=== PATIENT | female | born 1935 | race Caucasian/White ===

== ENCOUNTER 2017-02-12 13:57 | Outpatient (CLI) | payer MEDICARE ==
[2017-02-12 14:36] LABS: ALT (SGPT) 21 U/L (0-55); AST (SGOT) 26 U/L (5-34); Albumin 4.4 g/dL (3.4-4.8); Alkaline Phosphatase 97 U/L (40-150); Bilirubin, Direct 0.2 mg/dL (0.1-0.3); Bilirubin, Total 0.5 mg/dL (0.2-1.2); Cardiac Risk 2.2 (Less than 4.5); Cholesterol 193 mg/dL (< 200 Desired); HDL Cholesterol 86 mg/dL (>60 Neg Risk); LDL Cholesterol, Calculated 90 mg/dL; Triglycerides 85 mg/dL (Less than 150)
== END 2017-02-12 13:58 | disposition home or self-care (01) ==
LOC: HPCALD 13:57
PROVIDERS: ATTEND Family Medicine
DX: E78.00 Pure hypercholesterolemia, unspecified (principal)
CPT/HCPCS: 36415; 80061; 80076

== ENCOUNTER 2017-07-14 13:29 | Outpatient (CLI) | payer MEDICARE, MEDICAID ==
[2017-07-14 13:50] LABS: Bilirubin Negative (Negative); Blood, Urine Negative (Negative); Clarity Clear (Clear); Glucose, Urine (Dipstick) Negative (Negative); Leukocyte Negative (Negative); Nitrite Negative (Negative); Protein, Urine (Dipstick) Negative (Neg-Trace); Urobilinogen 0.2 mg/dL (0.2-1.0)
[2017-07-14 13:53] LABS: #Basophils 0.1 thou/uL (0.0-0.2); #Eosinphils 0.1 thou/uL (0.0-0.7); #Lymphocytes 2.2 thou/uL (1.20-3.40); #Monocytes 0.9 thou/uL (0.11-0.59); #Neutrophils 4.3 thou/uL (1.40-6.50); %Basophils 0.9 % (0.0-1.0); %Eosinophils 1.8 % (0.0-10.0); %Lymphocytes 28.5 % (21.0-51.0); %Monocytes 12.2 % (0.0-10.0); %Neutrophils 56.6 % (42.0-75.0); Hemoglobin 14.2 g/dL (12.0-16.0); Mean Corpuscular HGB CONC 32.5 g/dL (32.0-36.0); Mean Corpuscular Hemoglobin 30.4 pg (27.0-31.0); Mean Corpuscular Volume 93.5 fl (81.0-99.0); Mean Platelet Volume 6.1 fL (7.4-10.4); Platelet Count 219 thou/uL (130-400); RBC Distribution Width 11.4 % (11.5-14.5); Red Blood Cell (RBC) Count 4.67 mill/uL (4.20-5.40); White Blood Cell (WBC) Count 7.6 thou/uL (4.8-10.8)
[2017-07-14 13:58] LABS: Bacteria/HPF Rare-Few HPF (None Seen); Crystals/HPF RARE AMORPH PHOS HPF (Negative); RBC/HPF None Seen HPF (0-3); Squamous Epithelial 0-3 HPF (0-3); WBC/HPF 0-3 HPF (0-3)
[2017-07-14 14:17] LABS: ALT (SGPT) 22 U/L (8-55); AST (SGOT) 22 U/L (5-34); Albumin 4.4 g/dL (3.4-4.8); Alkaline Phosphatase 111 U/L (40-150); Anion Gap 15 mmol/L (10-20); BUN (Urea Nitrogen) 16 mg/dL (9.8-20.1); Bilirubin, Total 0.5 mg/dL (0.2-1.2); Calc. Creatinine Clearance 0 mL/min (70-130); Calcium 9.6 mg/dL (7.8-10.44); Carbon Dioxide 26 mmol/L (23-31); Chloride 100 mmol/L (98-107); Estimated GFR-MDRD 74; Globulin 2.7 g/dL (2.4-3.5); Glucose 88 mg/dL (83-110); Potassium 4.4 mmol/L (3.5-5.1); Protein, Total 7.1 g/dL (6.0-8.3); Sodium 137 mmol/L (136-145)
[2017-07-14 18:06] LABS: Syphilis Antibody Non-Reactive (NonReactive); Syphilis Antibody Index 0.05 S/CO (<1.00 Non-Reactive)
== END 2017-07-14 13:30 | disposition home or self-care (01) ==
LOC: HPCALD 13:29
PROVIDERS: ATTEND Family Medicine
DX: G31.84 Mild cognitive impairment of uncertain or unknown etiology (principal)
CPT/HCPCS: 80053; 81001; 82607; 84443; 85025; 86780

== ENCOUNTER → 2019-10-24 | Day surgery (SDC) | payer MEDICARE, MEDICAID ==
[2019-10-24 12:39] LABS: Bilirubin Negative (Negative); Blood, Urine Negative (Negative); Clarity Cloudy (Clear); Glucose, Urine (Dipstick) Negative (Negative); Leukocyte Trace (Negative); Nitrite Negative (Negative); Protein, Urine (Dipstick) Negative (Neg-Trace); Urobilinogen 0.2 mg/dL (Less than 2)
[2019-10-24 12:49] LABS: Bacteria/HPF Rare-Few HPF (None Seen); RBC/HPF None Seen HPF (0-3); Squamous Epithelial 0-3 HPF (0-3); WBC/HPF 0-3 HPF (0-3)
== END ==
LOC: BUR/OP 11:01
PROVIDERS: ATTEND Family Medicine
DX: R33.9 Retention of urine, unspecified (principal)
CPT/HCPCS: 51798; 81001; 87086

== ENCOUNTER 2019-11-22 12:36 | Inpatient (IN) | payer MEDICARE, MEDICAID ==
[2019-11-22] MEDS: Acetaminophen/Codeine 30-300mg Tablet PO PRN ×2 (19:38→23:40)
[2019-11-22] MEDS: Benztropine 1 MG TAB PO SCH (20:04)
[2019-11-22] MEDS: Atorvastatin Calcium 10 MG TAB PO SCH (20:04)
[2019-11-22] MEDS: tiZANidine HCl 4 MG TAB PO PRN (23:41)
[2019-11-23] MEDS: Acetaminophen/Codeine 30-300mg Tablet PO PRN ×4 (04:51→21:04)
[2019-11-23] MEDS: Amlodipine 5 MG TAB PO SCH (08:39)
[2019-11-23] MEDS: Vit A,C & E/Lutein/Minerals Tablet PO SCH ×2 (08:39→21:03)
[2019-11-23] MEDS: Benztropine 1 MG TAB PO SCH ×2 (08:39→21:03)
[2019-11-23] MEDS ORDERED: Polyethylene Glycol 3350 17 GM Packet PO PRN (10:04)
[2019-11-23] MEDS: Docusate 100 MG CAP PO SCH (21:03)
[2019-11-23] MEDS: Atorvastatin Calcium 10 MG TAB PO SCH (21:03)
[2019-11-24] MEDS: Acetaminophen/Codeine 30-300mg Tablet PO PRN ×4 (02:29→23:10)
[2019-11-24] MEDS: Vit A,C & E/Lutein/Minerals Tablet PO SCH ×2 (08:38→19:57)
[2019-11-24] MEDS: Benztropine 1 MG TAB PO SCH ×2 (08:38→19:57)
[2019-11-24] MEDS: Docusate 100 MG CAP PO SCH ×2 (08:39→19:57)
[2019-11-24] MEDS: Amlodipine 5 MG TAB PO SCH (08:39)
[2019-11-24] MEDS: Milk Of Magnesia 30 ML UDCUP PO PRN (19:46)
[2019-11-24] MEDS: Atorvastatin Calcium 10 MG TAB PO SCH (19:57)
[2019-11-25] MEDS: Acetaminophen/Codeine 30-300mg Tablet PO PRN (03:24)
[2019-11-25] MEDS: Benztropine 1 MG TAB PO SCH ×2 (08:56→21:11)
[2019-11-25] MEDS: Vit A,C & E/Lutein/Minerals Tablet PO SCH ×2 (08:56→21:11)
[2019-11-25] MEDS: Docusate 100 MG CAP PO SCH ×2 (08:57→21:11)
[2019-11-25] MEDS: Amlodipine 5 MG TAB PO SCH (08:57)
[2019-11-25] MEDS ORDERED: Triamcinolone 40 MG/ML VIAL ONE (12:28)
[2019-11-25] MEDS: Polyethylene Glycol 3350 17 GM Packet PO PRN (12:36)
[2019-11-25] MEDS: HYDROcodone/Acetaminophen 5/325 mg Tablet PO PRN ×3 (13:38→23:47)
[2019-11-25] MEDS: Atorvastatin Calcium 10 MG TAB PO SCH (21:11)
[2019-11-26] MEDS: HYDROcodone/Acetaminophen 5/325 mg Tablet PO PRN ×4 (04:29→21:21)
[2019-11-26] MEDS: Vit A,C & E/Lutein/Minerals Tablet PO SCH ×2 (08:48→21:21)
[2019-11-26] MEDS: Amlodipine 5 MG TAB PO SCH (08:48)
[2019-11-26] MEDS: Docusate 100 MG CAP PO SCH ×2 (08:48→21:21)
[2019-11-26] MEDS: Benztropine 1 MG TAB PO SCH ×2 (08:48→21:21)
--- NOTE | 2019-11-26 16:38 | HP ---
CHIEF COMPLAINT: Need for skilled rehabilitation. HISTORY OF THE PRESENT ILLNESS: Ms. Brown is an 84-year-old female with a past medical history of generalized anxiety disorder, on Prolixin injection therapy for many years, which has kept her condition under control, who has been suffering from chronic lumbar radiculopathy for several months. She was admitted to [facility] on November 16, 2019, by Demetrio Cleveland MD, who performed L2-L3 and L4-L5 laminectomies, partial facetectomies, and foraminotomies. In addition , he performed left L3-L4 hemilaminotomy and foraminotomy for decompression of the nerve root, right L3-L4 synovial cyst resection, right L3-L4 transfacet lateral diskectomy for decompression of the exiting left L3 nerve root, L3-L4 in-situ fusion posterolaterally with local bone autograft obtained from the same incision and allograft to treat spondylolisthesis, and use of operative microscope for microdissection for a diagnosis of multilevel lumbar stenosis, lumbar synovial cyst, lumbar spondylolisthesis, and far-lateral disk extrusion. Complications after the procedure included an elevated heart rate and hypertension. She has complained of some right buttock and posterior thigh pain, but overall it was improving at the time of her transfer. She continued to have some give-way weakness into the right leg when walking with therapists, but overall felt improving since the surgery. She had good strength in the bilateral lower extremities with intact sensation to light touch throughout and continued to have chronic resting tremor in all the extremities. At the time of her transfer, her incision appeared to be healing well per progress notes with a little dressing on the drainage appeared to be dry from the surgery without active drainage and has been receiving dressing changes since that time. She has been transferred to [facility] for continued physical and occupational therapy. At my exam, she has no complaints. The nursing staff does report deficits in short-term memory and recall. She does have a fall alarm in place. Her pain is well controlled and she has adequate bowel function. PAST MEDICAL HISTORY: 1. Chronic lumbar radiculopathy. 2. Hypertension. 3. 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 4. Castillo's palsy, left. 5. 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 6. Hypercholesterolemia. 7. 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 8. Rosacea. 9. Macular degeneration. 10. Osteoarthritis. 11. Hearing deficit, left greater than right. PAST SURGICAL HISTORY: 1. Right facial skin cancer resection, April 2012. 2. Left eye cataract, November 2013. 3. Nasal skin cancer excision, July 2015. 4. Right eye cataract, June 2016. SOCIAL HISTORY: The patient does not have a history of alcohol, tobacco, or illicit drugs. She is , owns a home, and lives at home alone. Recently, she has been care given by her daughter who lives in [place] who has been staying in her home with her. FAMILY HISTORY: Her mother is and lived to an age of 104. Her father was from a brain bleed. In 1980, she lost a 19-year-old son due to a train versus automobile accident. Her daughter is alive and healthy. IMMUNIZATIONS: The patient has received her influenza vaccination this year, last received Pneumovax in November 09, 2011, and Prevnar, February 15, 2018. MEDICATIONS: Prior to admission; 1. Fluphenazine decanoate 25 mg/mL solution, 2 mL injected monthly. 2. Hydrocodone/acetaminophen 2 p.o. q.8 hours. 3. Benztropine mesylate 1 mg p.o. b.i.d. 4. Ibuprofen 200 mg one p.o. with food or milk 3 times daily as needed. 5. Pravastatin sodium 40 mg one p.o. daily. 6. Amlodipine 5 mg one p.o. daily. 7. MetroGel 1%, one application to the affected area once daily p.r.n. 8. Systane 0.4-0.3% solution one drop into the affected eye as needed twice a day. 9. ICaps tablet 2 p.o. b.i.d. 10. MegaRed [place]-3 Krill Oil one p.o. daily. 11. She was transferred on tizanidine 2 mg p.o. t.i.d. p.r.n. and acetaminophen with codeine 1 p.o. q.4 hours p.r.n. Hydrocodone has been discontinued. ALLERGIES: NO KNOWN DRUG ALLERGIES. REVIEW OF SYSTEMS: CONSTITUTIONAL: The patient denies fever or chills. She has weakness from her lumbar radiculopathy and postop course. She does have chronic left facial weakness from history of Castillo's palsy, but no other focal weakness. OPHTHALMOLOGIC: Denies eye pain or blurred vision. ENT: Denies sore throat, rhinorrhea, ear pain. CARDIOVASCULAR: Denies chest pain, palpitations, orthopnea, or PND. RESPIRATORY: Denies shortness of breath, wheezing, hemoptysis, cough. ABDOMEN: Has had intermittent constipation, relieved with stool softeners and laxative. Denies melena or hematochezia. No nausea or vomiting. Good appetite. LYMPH: No swelling. HEMATOLOGIC: No easy bleeding or bruising. PSYCHIATRIC: No hallucinations or suicidal ideation. Occasionally anxious. Frequent cues reassure. NEUROLOGIC: Cranial nerves 2 through 12 grossly intact without focal deficits. PHYSICAL EXAMINATION: VITAL SIGNS: Temperature 98.8, pulse 85, respirations 20, O2 saturation 95% on room air, blood pressure 170/70. GENERAL: Well-developed, thin, female, elderly, in no acute distress, positive attitude, pleasant. Answers questions appropriately. Oriented to person, place, and time. Does not recall recent short-term events including elimination patterns. HEENT: Normocephalic, atraumatic. Nares are patent without discharge. Tongue protrudes in the midline. NECK: Supple without lymphadenopathy, thyromegaly, JVD, or bruit. HEART: Regular rate and rhythm with normal S1, S2. Distant heart sounds. No murmurs, clicks, rubs, or gallops. LUNGS: Clear to auscultation with good air entry bilaterally. No crackles or wheezes. ABDOMEN: Positive bowel sounds in all 4 quadrants. Soft, nontender, and nondistended. No masses, guarding, or rebound. EXTREMITIES: No cyanosis, clubbing, or edema. NEUROLOGIC: Facial nerve deficit on the left that is chronic. Otherwise, cranial nerves 2 through 12 grossly intact. LABORATORY DATA: White count on November 16 of 8.6, hemoglobin 12.7, hematocrit 39.1, platelets 235. Sodium 133, potassium 3.8, chloride 99, bicarb 27, BUN 21, creatinine 0.77. LFTs normal. TSH last performed on September 22, 2019, 3.5. ASSESSMENT AND PLAN: 1. Lumbar radiculopathy, status post multilevel lumbar surgery. The patient will be admitted for [facility], physical and occupational therapy. Fall precautions. Pain control. Stool softeners for bowel regimen. Monitor voiding frequency. Observe for signs of urinary retention. 2. Hypertension. The patient will be monitored on her current medications and adjusted for a goal blood pressure of less than 150 systolic over 90 diastolic. Low-sodium diet. 3. Hyperlipidemia. The patient will be continued on her statin. 4. 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 The patient will be continued on her Prolixin monthly. 5. Prophylaxis. SCDs, Pepcid. CODE STATUS: Full code. Job ID: [id number] [facility]
[2019-11-26] MEDS: Atorvastatin Calcium 10 MG TAB PO SCH (21:21)
[2019-11-26] MEDS: Famotidine 20 MG TAB PO SCH (21:21)
[2019-11-27] MEDS: HYDROcodone/Acetaminophen 5/325 mg Tablet PO PRN ×4 (01:24→23:02)
[2019-11-27] MEDS: Docusate 100 MG CAP PO SCH ×2 (09:45→21:17)
[2019-11-27] MEDS: Amlodipine 5 MG TAB PO SCH (09:45)
[2019-11-27] MEDS: Benztropine 1 MG TAB PO SCH ×2 (09:45→21:17)
[2019-11-27] MEDS: Vit A,C & E/Lutein/Minerals Tablet PO SCH ×2 (09:45→21:17)
[2019-11-27] MEDS: Famotidine 20 MG TAB PO SCH (21:17)
[2019-11-27] MEDS: Atorvastatin Calcium 10 MG TAB PO SCH (21:17)
[2019-11-28] MEDS: HYDROcodone/Acetaminophen 5/325 mg Tablet PO PRN ×3 (03:05→20:14)
[2019-11-28] MEDS: Docusate 100 MG CAP PO SCH ×2 (08:45→20:14)
[2019-11-28] MEDS: Vit A,C & E/Lutein/Minerals Tablet PO SCH ×2 (08:45→20:13)
[2019-11-28] MEDS: Amlodipine 5 MG TAB PO SCH (08:45)
[2019-11-28] MEDS: Benztropine 1 MG TAB PO SCH ×2 (08:45→20:14)
[2019-11-28] MEDS: tiZANidine HCl 4 MG TAB PO PRN (16:30)
[2019-11-28] MEDS: Atorvastatin Calcium 10 MG TAB PO SCH (20:14)
[2019-11-28] MEDS: Famotidine 20 MG TAB PO SCH (20:18)
[2019-11-29] MEDS: tiZANidine HCl 4 MG TAB PO PRN ×2 (02:01→19:16)
[2019-11-29] MEDS: HYDROcodone/Acetaminophen 5/325 mg Tablet PO PRN ×3 (04:48→18:21)
[2019-11-29] MEDS: Vit A,C & E/Lutein/Minerals Tablet PO SCH ×2 (08:21→20:31)
[2019-11-29] MEDS: Docusate 100 MG CAP PO SCH ×2 (08:21→20:31)
[2019-11-29] MEDS: Amlodipine 5 MG TAB PO SCH (08:21)
[2019-11-29] MEDS: Benztropine 1 MG TAB PO SCH ×2 (08:23→20:31)
[2019-11-29] MEDS: Famotidine 20 MG TAB PO SCH (20:31)
[2019-11-29] MEDS: Atorvastatin Calcium 10 MG TAB PO SCH (20:31)
[2019-11-30] MEDS: HYDROcodone/Acetaminophen 5/325 mg Tablet PO PRN ×4 (02:09→20:25)
[2019-11-30] MEDS: Amlodipine 5 MG TAB PO SCH (08:29)
[2019-11-30] MEDS: Docusate 100 MG CAP PO SCH ×2 (08:29→20:21)
[2019-11-30] MEDS: Benztropine 1 MG TAB PO SCH ×2 (08:31→20:21)
[2019-11-30] MEDS: Vit A,C & E/Lutein/Minerals Tablet PO SCH ×2 (09:37→20:20)
[2019-11-30] MEDS: Famotidine 20 MG TAB PO SCH (20:22)
[2019-11-30] MEDS: Atorvastatin Calcium 10 MG TAB PO SCH (20:22)
[2019-11-30] MEDS: tiZANidine HCl 4 MG TAB PO PRN (23:46)
[2019-12-01] MEDS: HYDROcodone/Acetaminophen 5/325 mg Tablet PO PRN ×4 (02:44→23:46)
[2019-12-01] MEDS ORDERED: cloNIDine 0.1 MG TAB PO SCH ×2 (05:30→06:45)
[2019-12-01] MEDS: Vit A,C & E/Lutein/Minerals Tablet PO SCH ×2 (08:35→20:04)
[2019-12-01] MEDS: Amlodipine 5 MG TAB PO SCH (08:36)
[2019-12-01] MEDS: Benztropine 1 MG TAB PO SCH ×2 (08:36→20:04)
[2019-12-01] MEDS: Docusate 100 MG CAP PO SCH ×2 (08:36→20:02)
[2019-12-01] MEDS: Famotidine 20 MG TAB PO SCH (20:02)
[2019-12-01] MEDS: Atorvastatin Calcium 10 MG TAB PO SCH (20:02)
[2019-12-02] MEDS: tiZANidine HCl 4 MG TAB PO PRN ×2 (01:41→21:25)
[2019-12-02] MEDS: HYDROcodone/Acetaminophen 5/325 mg Tablet PO PRN ×2 (04:07→08:24)
[2019-12-02] MEDS: Benztropine 1 MG TAB PO SCH ×2 (08:25→21:25)
[2019-12-02] MEDS: Docusate 100 MG CAP PO SCH ×2 (08:28→21:25)
[2019-12-02] MEDS: Amlodipine 5 MG TAB PO SCH (08:28)
[2019-12-02] MEDS: Vit A,C & E/Lutein/Minerals Tablet PO SCH ×2 (08:30→21:24)
[2019-12-02] MEDS ORDERED: HYDROcodone/Acetaminophen 7.5/325 mg Tablet PO PRN (17:37)
[2019-12-02] MEDS: Famotidine 20 MG TAB PO SCH (21:25)
[2019-12-02] MEDS: Atorvastatin Calcium 10 MG TAB PO SCH (21:26)
[2019-12-02] MEDS: Enoxaparin Sodium 30 MG/0.3 ML SYRINGE SC SCH (21:26)
[2019-12-02] MEDS: HYDROcodone/Acetaminophen 10/325 mg Tablet PO PRN (23:13)
[2019-12-03] MEDS: HYDROcodone/Acetaminophen 10/325 mg Tablet PO PRN ×3 (03:25→23:49)
[2019-12-03 05:17] LABS: Hemoglobin 10.5 g/dL (12.0-16.0); Platelet Count 502 thou/uL (130-400)
[2019-12-03] MEDS: Benztropine 1 MG TAB PO SCH ×2 (08:21→21:08)
[2019-12-03] MEDS: Vit A,C & E/Lutein/Minerals Tablet PO SCH ×2 (08:22→21:09)
[2019-12-03] MEDS: Docusate 100 MG CAP PO SCH ×2 (08:22→21:08)
[2019-12-03] MEDS: Amlodipine 5 MG TAB PO SCH (08:26)
[2019-12-03] MEDS: Atorvastatin Calcium 10 MG TAB PO SCH (21:08)
[2019-12-03] MEDS: Enoxaparin Sodium 30 MG/0.3 ML SYRINGE SC SCH (21:08)
[2019-12-03] MEDS: Famotidine 20 MG TAB PO SCH (21:11)
[2019-12-04] MEDS: HYDROcodone/Acetaminophen 10/325 mg Tablet PO PRN ×3 (06:42→22:44)
[2019-12-04] MEDS: Docusate 100 MG CAP PO SCH ×2 (08:48→20:20)
[2019-12-04] MEDS: Amlodipine 5 MG TAB PO SCH (08:48)
[2019-12-04] MEDS: Benztropine 1 MG TAB PO SCH ×2 (08:51→20:20)
[2019-12-04] MEDS: Vit A,C & E/Lutein/Minerals Tablet PO SCH ×2 (08:51→20:22)
[2019-12-04] MEDS: Milk Of Magnesia 30 ML UDCUP PO PRN (17:33)
[2019-12-04] MEDS: Enoxaparin Sodium 30 MG/0.3 ML SYRINGE SC SCH (20:20)
[2019-12-04] MEDS: Atorvastatin Calcium 10 MG TAB PO SCH (20:20)
[2019-12-04] MEDS: Famotidine 20 MG TAB PO SCH (20:22)
[2019-12-05] MEDS: HYDROcodone/Acetaminophen 10/325 mg Tablet PO PRN ×2 (05:12→16:01)
[2019-12-05] MEDS: Docusate 100 MG CAP PO SCH ×2 (08:40→20:29)
[2019-12-05] MEDS: Amlodipine 5 MG TAB PO SCH (08:40)
[2019-12-05] MEDS: Benztropine 1 MG TAB PO SCH ×2 (08:40→20:29)
[2019-12-05] MEDS: Polyethylene Glycol 3350 17 GM Packet PO PRN (08:41)
[2019-12-05] MEDS: Vit A,C & E/Lutein/Minerals Tablet PO SCH ×2 (09:04→20:29)
[2019-12-05] MEDS ORDERED: Betamethasone 0.1% Cream 15 GM TUBE TOP PRN (11:40)
[2019-12-05] MEDS: Enoxaparin Sodium 30 MG/0.3 ML SYRINGE SC SCH (20:29)
[2019-12-05] MEDS: Atorvastatin Calcium 10 MG TAB PO SCH (20:29)
[2019-12-05] MEDS: Famotidine 20 MG TAB PO SCH (20:29)
[2019-12-05] MEDS: tiZANidine HCl 4 MG TAB PO PRN (20:29)
[2019-12-06] MEDS: HYDROcodone/Acetaminophen 10/325 mg Tablet PO PRN ×3 (01:46→23:49)
[2019-12-06] MEDS: Vit A,C & E/Lutein/Minerals Tablet PO SCH ×2 (09:05→20:31)
[2019-12-06] MEDS: Benztropine 1 MG TAB PO SCH ×2 (09:05→20:32)
[2019-12-06] MEDS: Docusate 100 MG CAP PO SCH ×2 (09:05→20:31)
[2019-12-06] MEDS: Amlodipine 5 MG TAB PO SCH (09:05)
[2019-12-06] MEDS: Famotidine 20 MG TAB PO SCH (20:31)
[2019-12-06] MEDS: Atorvastatin Calcium 10 MG TAB PO SCH (20:31)
[2019-12-06] MEDS: Enoxaparin Sodium 30 MG/0.3 ML SYRINGE SC SCH (20:32)
[2019-12-06] MEDS: tiZANidine HCl 4 MG TAB PO PRN (20:32)
[2019-12-07] MEDS: HYDROcodone/Acetaminophen 10/325 mg Tablet PO PRN ×3 (04:20→20:22)
[2019-12-07] MEDS: Vit A,C & E/Lutein/Minerals Tablet PO SCH ×2 (08:49→20:22)
[2019-12-07] MEDS: Docusate 100 MG CAP PO SCH ×2 (08:50→20:21)
[2019-12-07] MEDS: Amlodipine 5 MG TAB PO SCH (08:50)
[2019-12-07] MEDS: Benztropine 1 MG TAB PO SCH ×2 (08:51→20:21)
[2019-12-07] MEDS: Atorvastatin Calcium 10 MG TAB PO SCH (20:21)
[2019-12-07] MEDS: Enoxaparin Sodium 30 MG/0.3 ML SYRINGE SC SCH (20:30)
[2019-12-07] MEDS: Famotidine 20 MG TAB PO SCH (20:33)
[2019-12-08] MEDS: HYDROcodone/Acetaminophen 10/325 mg Tablet PO PRN ×3 (03:09→11:21)
[2019-12-08] MEDS: Vit A,C & E/Lutein/Minerals Tablet PO SCH ×2 (08:26→20:34)
[2019-12-08] MEDS: Benztropine 1 MG TAB PO SCH ×2 (08:27→20:34)
[2019-12-08] MEDS: Docusate 100 MG CAP PO SCH ×2 (08:27→20:34)
[2019-12-08] MEDS: Amlodipine 5 MG TAB PO SCH (08:27)
[2019-12-08 09:08] LABS: Hemoglobin 11.1 g/dL (12.0-16.0); Platelet Count 399 thou/uL (130-400)
[2019-12-08] MEDS: Atorvastatin Calcium 10 MG TAB PO SCH (20:34)
[2019-12-08] MEDS: tiZANidine HCl 4 MG TAB PO PRN (20:35)
[2019-12-08] MEDS: HYDROcodone/Acetaminophen 5/325 mg Tablet PO PRN (20:35)
[2019-12-08] MEDS: Enoxaparin Sodium 30 MG/0.3 ML SYRINGE SC SCH (20:36)
[2019-12-09] MEDS: Famotidine 20 MG TAB PO SCH ×2 (01:21→20:07)
[2019-12-09] MEDS: HYDROcodone/Acetaminophen 5/325 mg Tablet PO PRN ×3 (01:21→20:07)
[2019-12-09] MEDS: Vit A,C & E/Lutein/Minerals Tablet PO SCH ×2 (08:51→20:07)
[2019-12-09] MEDS: Amlodipine 5 MG TAB PO SCH (08:51)
[2019-12-09] MEDS: Docusate 100 MG CAP PO SCH ×2 (08:51→20:06)
[2019-12-09] MEDS: Benztropine 1 MG TAB PO SCH ×2 (08:52→20:06)
[2019-12-09] MEDS: Acetaminophen 500 MG TAB PO PRN (13:24)
[2019-12-09] MEDS: Atorvastatin Calcium 10 MG TAB PO SCH (20:07)
[2019-12-09] MEDS: Enoxaparin Sodium 30 MG/0.3 ML SYRINGE SC SCH (20:08)
[2019-12-09] MEDS: tiZANidine HCl 4 MG TAB PO PRN (21:46)
[2019-12-10] MEDS: HYDROcodone/Acetaminophen 5/325 mg Tablet PO PRN ×3 (02:58→20:15)
[2019-12-10 05:32] LABS: Hemoglobin 11.2 g/dL (12.0-16.0); Platelet Count 324 thou/uL (130-400)
[2019-12-10] MEDS: tiZANidine HCl 4 MG TAB PO PRN (06:50)
[2019-12-10] MEDS: Docusate 100 MG CAP PO SCH ×2 (08:56→20:15)
[2019-12-10] MEDS: Vit A,C & E/Lutein/Minerals Tablet PO SCH ×2 (08:56→20:21)
[2019-12-10] MEDS: Polyethylene Glycol 3350 17 GM Packet PO PRN (08:56)
[2019-12-10] MEDS: Benztropine 1 MG TAB PO SCH ×2 (08:56→20:15)
[2019-12-10] MEDS: Amlodipine 5 MG TAB PO SCH (08:58)
[2019-12-10] MEDS: Famotidine 20 MG TAB PO SCH (20:15)
[2019-12-10] MEDS: Atorvastatin Calcium 10 MG TAB PO SCH (20:15)
[2019-12-10] MEDS: Enoxaparin Sodium 30 MG/0.3 ML SYRINGE SC SCH (20:17)
[2019-12-11] MEDS: Acetaminophen 500 MG TAB PO PRN (05:45)
[2019-12-11] MEDS: Amlodipine 5 MG TAB PO SCH (08:53)
[2019-12-11] MEDS: Docusate 100 MG CAP PO SCH ×2 (08:53→21:11)
[2019-12-11] MEDS: HYDROcodone/Acetaminophen 5/325 mg Tablet PO PRN ×3 (08:55→21:11)
[2019-12-11] MEDS: Benztropine 1 MG TAB PO SCH ×2 (08:56→21:11)
[2019-12-11] MEDS: Vit A,C & E/Lutein/Minerals Tablet PO SCH ×2 (08:56→21:11)
[2019-12-11] MEDS: Atorvastatin Calcium 10 MG TAB PO SCH (21:11)
[2019-12-11] MEDS: Famotidine 20 MG TAB PO SCH (21:11)
[2019-12-11] MEDS: Enoxaparin Sodium 30 MG/0.3 ML SYRINGE SC SCH (21:11)
[2019-12-11] MEDS: tiZANidine HCl 4 MG TAB PO PRN (23:25)
[2019-12-12] MEDS: HYDROcodone/Acetaminophen 5/325 mg Tablet PO PRN ×2 (04:15→16:46)
[2019-12-12 04:34] LABS: Hemoglobin 11.5 g/dL (12.0-16.0); Platelet Count 289 thou/uL (130-400)
[2019-12-12] MEDS ORDERED: cloNIDine 0.1 MG TAB PO SCH (06:45)
[2019-12-12] MEDS: Docusate 100 MG CAP PO SCH ×2 (09:19→21:03)
[2019-12-12] MEDS: Vit A,C & E/Lutein/Minerals Tablet PO SCH ×2 (09:19→21:03)
[2019-12-12] MEDS: Benztropine 1 MG TAB PO SCH ×2 (09:19→21:03)
[2019-12-12] MEDS: Amlodipine 5 MG TAB PO SCH (09:20)
[2019-12-12] MEDS ORDERED: Sodium Chloride 0.9% 250 ML IV SCH (11:00)
[2019-12-12] MEDS ORDERED: Sodium Chloride 0.9% 250 ML 250 ML IVPB SCH (11:30)
[2019-12-12] MEDS ORDERED: Amlodipine 5 MG TAB PO SCH (11:30)
[2019-12-12] MEDS: Atorvastatin Calcium 10 MG TAB PO SCH (21:03)
[2019-12-12] MEDS: Famotidine 20 MG TAB PO SCH (21:03)
[2019-12-12] MEDS: Enoxaparin Sodium 30 MG/0.3 ML SYRINGE SC SCH (21:03)
[2019-12-13] MEDS: Benztropine 1 MG TAB PO SCH ×2 (09:39→21:50)
[2019-12-13] MEDS: Amlodipine 5 MG TAB PO SCH (09:39)
[2019-12-13] MEDS: Vit A,C & E/Lutein/Minerals Tablet PO SCH ×2 (09:39→21:49)
[2019-12-13] MEDS: Docusate 100 MG CAP PO SCH ×2 (09:39→21:49)
[2019-12-13] MEDS: Acetaminophen 500 MG TAB PO PRN (09:43)
[2019-12-13] MEDS: HYDROcodone/Acetaminophen 5/325 mg Tablet PO PRN ×2 (11:53→21:50)
[2019-12-13 12:50] VITALS: BMI 19.6
[2019-12-13] MEDS: Atorvastatin Calcium 10 MG TAB PO SCH (21:50)
[2019-12-13] MEDS: Famotidine 20 MG TAB PO SCH (21:51)
[2019-12-13] MEDS: Enoxaparin Sodium 30 MG/0.3 ML SYRINGE SC SCH (21:52)
[2019-12-13] MEDS: tiZANidine HCl 4 MG TAB PO PRN (21:52)
[2019-12-14] MEDS: HYDROcodone/Acetaminophen 5/325 mg Tablet PO PRN ×3 (02:28→17:36)
[2019-12-14 05:10] LABS: Hemoglobin 12.1 g/dL (12.0-16.0); Platelet Count 300 thou/uL (130-400)
[2019-12-14] MEDS: Docusate 100 MG CAP PO SCH ×2 (09:19→20:07)
[2019-12-14] MEDS: Amlodipine 5 MG TAB PO SCH (09:19)
[2019-12-14] MEDS: Vit A,C & E/Lutein/Minerals Tablet PO SCH ×2 (09:24→20:08)
[2019-12-14] MEDS: Benztropine 1 MG TAB PO SCH ×2 (09:24→20:08)
[2019-12-14] MEDS: tiZANidine HCl 4 MG TAB PO PRN (20:08)
[2019-12-14] MEDS: Enoxaparin Sodium 30 MG/0.3 ML SYRINGE SC SCH (20:08)
[2019-12-14] MEDS: Atorvastatin Calcium 10 MG TAB PO SCH (20:08)
[2019-12-14] MEDS: Famotidine 20 MG TAB PO SCH (20:09)
[2019-12-14] MEDS ORDERED: Amlodipine 5 MG TAB PO SCH (21:00)
[2019-12-15] MEDS: HYDROcodone/Acetaminophen 5/325 mg Tablet PO PRN ×2 (00:25→04:23)
[2019-12-15 05:43] VITALS: BP 160/76; TEMP 98.5
[2019-12-15] MEDS: Vit A,C & E/Lutein/Minerals Tablet PO SCH (09:04)
[2019-12-15] MEDS: Benztropine 1 MG TAB PO SCH (09:04)
[2019-12-15] MEDS: Docusate 100 MG CAP PO SCH (09:04)
[2019-12-15] MEDS: Acetaminophen 500 MG TAB PO PRN (09:07)
--- NOTE | 2019-12-15 18:59 | DIS ---
DATE OF ADMISSION: 11/22/2019 DATE OF DISCHARGE: 12/15/2019 ADMISSION DIAGNOSES: 1. Lumbar radiculopathy, status post multilevel lumbar surgery. 2. Hypertension. 3. Hyperlipidemia. 4. 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 DISCHARGE DIAGNOSES: 1. Lumbar radiculopathy, status post multilevel lumbar surgery. 2. Hypertension. 3. Hyperlipidemia. 4. 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 HISTORY AND PHYSICAL: Please see dictated report from the date of admission. [facility] COURSE: Ms. Brown is an 84-year-old female with past medical history of lumbar radiculopathy, who underwent L2-L3 and L4-L5 laminectomies, partial facetectomies, and foraminotomies with Dr. Demetrio Cleveland on November 16, 2019. In addition, he performed left L3-L4 hemilaminotomy and foraminotomy for decompression of the nerve root, right L3-L4 synovial cyst resection, right L3-L4 transfacet lateral diskectomy for decompression of the exiting left L3 nerve root, L3-L4 in situ fusion posterior laterally with local bone autograft obtained from the same incision and allograft to treat spondylolisthesis, and use of operative microscope for microdissection for a diagnosis of multilevel lumbar stenosis, lumbar synovial cyst, lumbar spondylolisthesis, and far lateral disk extrusion. The patient was transferred for physical and occupational therapy and was evaluated and treated. Throughout her hospital course, she progressed with walker such that she was walking 250 feet with rolling walker and contact guard assist. She was noted with weakness in the legs and buckling of the right knee with pain during therapy. She continues to require extensive verbal cueing, supervision and guidance daily and therefore was recommended to continue her therapy for a longer period of time at [facility]. Her discharge from there, the patient hopes to return home with her daughter to stay with her for approximately 2 weeks and home health. Her residential course was complicated by labile hypertension, which seems to be elevated early in the a.m. for the most part. We played around with her antihypertensive regimen and she is starting a 10 mg amlodipine dosage at night, the first dose of which was administered last night. She is also continuing her Toprol. We can continue to monitor this in the outpatient setting. Regarding her pain, we have managed to taper this down to Tylenol No.3 every 4 to 6 hours at her discharge in [facility]. During her residential course, she was evaluated by Dr. Cleveland's physician cataloging assistant on December 04, 2019, and was recommended to follow up with our office in 4 weeks with no bending or twisting at the waist, no lifting more than 10 pounds and to cover the incision daily with clean dry gauze and tape and to still continue showers only. DISPOSITION: Transferred to [facility]. CONDITION: Good. MEDICATIONS: 1. Tizanidine 2 mg p.o. t.i.d. p.r.n. 2. Prolixin D 50 mg subcu q.30 days. 3. Pravachol 1 p.o. at bedtime. 4. Multivitamin 2 p.o. b.i.d. 5. Cogentin 1 p.o. b.i.d. 6. Tylenol No.3 one p.o. q.4 hours p.r.n. pain. 7. MiraLAX 17 g p.o. daily p.r.n. 8. Toprol-XL 100 mg p.o. daily. 9. Milk of magnesia 30 mL p.o. daily p.r.n. 10. Pepcid 20 mg p.o. daily. 11. Lovenox 30 mg subcu daily. 12. Colace 100 mg p.o. b.i.d. 13. Norvasc 10 mg p.o. at bedtime. 14. Tylenol Extra Strength 1000 mg p.o. q.4 hours p.r.n., Tylenol not to exceed 4 g per day. FOLLOWUP: Follow up with Dr. Rona Hackett at facility within 72 hours. Job ID: [id number]
[2019-12-15] MEDS ORDERED: Amlodipine 10 MG TAB PO SCH (21:00)
[2019-12-21] MEDS ORDERED: FLUPHENAZINE DECANOATE SC SCH (09:00)
== END 2019-12-15 13:50 | DRG 561 ==
LOC: BURMED 17:18
PROVIDERS: ADMIT Family Medicine; ATTEND Family Medicine
DX: Z47.89 Encounter for other orthopedic aftercare (principal); M54.16 Radiculopathy, lumbar region; I10 Essential (primary) hypertension; E78.5 Hyperlipidemia, unspecified; F41.1 Generalized anxiety disorder; E78.00 Pure hypercholesterolemia, unspecified; F01.50 Vascular dementia, unspecified severity, without behavioral disturbance, psychotic disturbance, mood disturbance, and anxiety; H35.30 Unspecified macular degeneration; M19.90 Unspecified osteoarthritis, unspecified site; Z98.42 Cataract extraction status, left eye; Z98.41 Cataract extraction status, right eye; G51.0 Bell's palsy
CPT/HCPCS: 36415; 82565; 85014; 85018; 85049; J1650; J3301; J7050

== ENCOUNTER 2021-08-18 17:28 | Emergency (ER) | payer MEDICARE, MEDICAID ==
[~2021-08-18 17:28] MED LIST: Iopamidol 370 76% 100 ML VIAL ONE
[2021-08-18 18:02] LABS: #Basophils 0.2 thou/uL (0.0-0.2); #Eosinphils 0.1 thou/uL (0.0-0.7); #Lymphocytes 1.3 thou/uL (1.20-3.40); #Monocytes 0.9 thou/uL (0.11-0.59); #Neutrophils 7.2 thou/uL (1.40-6.50); %Basophils 1.7 % (0.0-1.0); %Lymphocytes 13.4 % (21.0-51.0); %Monocytes 9.6 % (0.0-10.0); %Neutrophils 74.2 % (42.0-75.0); Hemoglobin 11.2 g/dL (12.0-16.0); Mean Corpuscular HGB CONC 32.4 g/dL (32.0-36.0); Mean Corpuscular Hemoglobin 28.5 pg (27.0-31.0); Mean Corpuscular Volume 87.8 fL (78.0-98.0); Mean Platelet Volume 5.2 fL (7.4-10.4); Platelet Count 421 thou/uL (130-400); RBC Distribution Width 12.2 % (11.5-14.5); Red Blood Cell (RBC) Count 3.93 mill/uL (4.20-5.40); White Blood Cell (WBC) Count 9.7 thou/uL (4.8-10.8)
[2021-08-18 18:16] LABS: ALT (SGPT) 11 U/L (8-55); AST (SGOT) 21 U/L (5-34); Albumin 2.9 g/dL (3.4-4.8); Alkaline Phosphatase 64 U/L (40-110); Anion Gap 14 mmol/L (10-20); BUN (Urea Nitrogen) 27 mg/dL (9.8-20.1); Bilirubin, Total 0.3 mg/dL (0.2-1.2); Calc. Creatinine Clearance 0 mL/min (70-130); Calcium 8.8 mg/dL (7.8-10.44); Carbon Dioxide 20 mmol/L (23-31); Chloride 98 mmol/L (98-107); Glucose 100 mg/dL (83-110); Lipase 25 U/L (8-78); Potassium 4.4 mmol/L (3.5-5.1); Protein, Total 5.9 g/dL (5.8-8.1); Sodium 128 mmol/L (136-145)
[2021-08-18 18:35] LABS: Bilirubin Small (Negative); Blood, Urine Moderate (Negative); Clarity Clear (Clear); Glucose, Urine (Dipstick) Negative (Negative); Ketone, Urine 15 mg/dL (Negative); Leukocyte Negative (Negative); Nitrite Negative (Negative); Protein, Urine (Dipstick) Negative (Neg-Trace); Specific Gravity, Urine 1.015 (1.005-1.030); Urobilinogen 0.2 mg/dL (Less than 2)
[2021-08-18 18:42] LABS: Bacteria/HPF Rare-Few HPF (None Seen); Squamous Epithelial 0-3 HPF (0-3); WBC/HPF 0-3 HPF (0-3)
[2021-08-18 20:11] LABS: PTT 35.5 sec (22.9-36.1); Prothrombin Time 13.6 sec (12.0-14.7)
[2021-08-19 00:30] LABS: SARS-CoV-2 NAA Rapid Test Not Detected (NotDetected)
== END 2021-08-18 23:25 | disposition short-term general hospital (02) ==
LOC: BURERS 17:28
DX: E87.1 Hypo-osmolality and hyponatremia (principal); R18.8 Other ascites; J90 Pleural effusion, not elsewhere classified; R10.9 Unspecified abdominal pain; Z20.822 Contact with and (suspected) exposure to COVID-19; R63.8 Other symptoms and signs concerning food and fluid intake; E78.5 Hyperlipidemia, unspecified; E78.00 Pure hypercholesterolemia, unspecified; I10 Essential (primary) hypertension; Z79.899 Other long term (current) drug therapy
CPT/HCPCS: 74177; 80053; 83690; 83880; 85025; 85610; 85730; 93005; 99285; U0002; 36415; 81003; 81015; Q9967